=== PATIENT | male | born 1980 | race Hispanic/Latino ===

== ENCOUNTER 2022-07-06 10:44 | Emergency (ER) | payer OTHER, SELFPAY ==
[2022-07-06] MEDS ORDERED: HYDROmorphone 0.5 MG/0.5 ML SYRINGE ONE ×3 (11:22→13:20)
== END 2022-07-06 15:05 | disposition home or self-care (01) ==
LOC: CSHERS 10:44
DX: S82.141A Displaced bicondylar fracture of right tibia, initial encounter for closed fracture (principal); S82.831A Other fracture of upper and lower end of right fibula, initial encounter for closed fracture; W17.89XA Other fall from one level to another, initial encounter; Y92.61 Building [any] under construction as the place of occurrence of the external cause
CPT/HCPCS: 29345; 96372; J1170